=== PATIENT | male | born 1955 | race Caucasian/White ===

== ENCOUNTER 2018-10-13 17:56 | Emergency (ER) | payer BC ==
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
[2018-10-13] MEDS ORDERED: HYDROCODONE/APAP 5/325 MG TAB ONE (19:36)
[2018-10-13] MEDS ORDERED: CYCLOBENZAPRINE 10 MG TAB ONE (19:36)
[2018-10-13 20:06] VITALS: TEMP 97.5
[2018-10-13 20:08] VITALS: BP 126/75; O2SAT 99
== END 2018-10-13 19:57 | disposition home or self-care (01) ==
LOC: ER 17:56
DX: S19.9XXA Unspecified injury of neck, initial encounter (principal); V49.49XA Driver injured in collision with other motor vehicles in traffic accident, initial encounter; I10 Essential (primary) hypertension
CPT/HCPCS: 70450; 72125; 99284